=== PATIENT | male | born 1975 | race Caucasian/White ===

== ENCOUNTER 2019-09-15 19:26 | Emergency (ER) | payer OTHER ==
[~2019-09-15] VITALS: Ht 177.8 cm; Wt 77.1 kg
== END 2019-09-15 20:58 | disposition home or self-care (01) ==
LOC: ER 19:26
DX: A90 Dengue fever [classical dengue] (principal)

== ENCOUNTER 2021-04-09 20:48 | Emergency (ER) | payer OTHER ==
[~2021-04-09] VITALS: Ht 177.8 cm; Wt 74.8 kg
== END 2021-04-10 00:23 | disposition home or self-care (01) ==
LOC: ER 20:48
DX: M79.602 Pain in left arm (principal)